=== PATIENT | male | born 2000 | race Caucasian/White ===

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

== ENCOUNTER 2019-10-05 01:53 | Emergency (ER) | payer SELFPAY ==
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
== END 2019-10-05 02:58 | disposition home or self-care (01) ==
LOC: MW.ED 01:53
DX: S02.85XA Fracture of orbit, unspecified, initial encounter for closed fracture (principal); Y04.0XXA Assault by unarmed brawl or fight, initial encounter
CPT/HCPCS: 70486; 70486-26; 99283; 99284-25

== ENCOUNTER 2022-01-16 15:36 | Emergency (ER) | payer SELFPAY ==
[2022-01-16] MEDS ORDERED: Acetaminophen 500 MG Tab PO ONE (16:14)
[2022-01-16] MEDS ORDERED: Ibuprofen 800 MG Tab PO ONE (16:14)
[2022-01-16 17:00] LABS: CORONAVIRUS COVID-19 NAA NEGATIVE (NEGATIVE); INFLUENZA A NAA POSITIVE (NEGATIVE); INFLUENZA B NAA NEGATIVE (NEGATIVE); RESPIRATORY SYNCYTIAL VIR NAA NEGATIVE (NEGATIVE)
== END 2022-01-16 19:50 | disposition home or self-care (01) ==
LOC: MW.ED 15:36
DX: J10.1 Influenza due to other identified influenza virus with other respiratory manifestations (principal); J32.9 Chronic sinusitis, unspecified; Z20.822 Contact with and (suspected) exposure to COVID-19
CPT/HCPCS: 0241U; 99283; A9270